=== PATIENT | male | born 1980 | race Two or more races ===

== ENCOUNTER 2024-03-31 16:29 | Emergency (ER) | payer MEDICAID, OTHER ==
[~2024-03-31] VITALS: Ht 177.8 cm; Wt 110.7 kg
[2024-03-31 17:20] LABS: Urine Bacteria None Seen /hpf (None Seen)
[2024-03-31 18:06] LABS: Basophils # (auto) 0 10 ^3/uL (0-0.2); Basophils % (auto) 0.4 % (0.0-2.0); Eosinophils # (auto) 0.2 10 ^3/uL (0-0.8); Eosinophils % (auto) 4.2 % (0.0-7.0); Hematocrit 45.6 % (41.0-53.0); Hemoglobin 15.2 g/dL (13.5-17.5); Lymphocytes # (auto) 1.7 10 ^3/uL (0.4-5.4); Lymphocytes % (auto) 31.6 % (10.0-50.0); Mean Corpuscular Hemoglobin 27.5 pg (28.0-32.0); Mean Corpuscular Hgb Conc. 33.4 g/dL (32.0-36.0); Mean Corpuscular Volume 82.5 fL (80.0-100.0); Monocytes # (auto) 0.5 10 ^3/uL (0-1.3); Monocytes % (auto) 10.2 % (0.0-12.0); Neutrophils # (auto) 2.9 10 ^3/uL (1.6-8.6); Neutrophils % (auto) 53.6 % (37.0-80.0); Nucleated Red Blood Cells % 0.1 %; Platelet Count (auto) 217 10^3/uL (140-450); Red Blood Cells 5.52 10^6/uL (4.5-5.90); Red Cell Distribution Width 13.4 % (11.8-14.3); White Blood Cell 5.3 10^3/uL (4.4-10.8)
[2024-03-31 18:11] LABS: Urine Blood Negative /uL (Negative); Urine Clarity Clear (Clear); Urine Color Light-Yellow (Yellow); Urine Mucus FEW (None Seen); Urine Protein, UAD Negative (Negative); Urine Specific Gravity 1.017 (1.001-1.035); Urine Urobilinogen Normal (Negative); Urine WBC 1 /hpf (0 - 3); Urine pH 7.5 (5.0-9.0)
[2024-03-31] MEDS ORDERED: TRAM50TA2 PO (18:31)
[2024-03-31 18:37] LABS: Chloride 107 mmol/L (98-107); Sodium 140 mmol/L (136-145)
[2024-03-31 18:38] LABS: Anion Gap 6 (5-15); Calcium 9.4 mg/dL (8.7-10.4); Carbon Dioxide 27 mmol/L (20-31)
[2024-03-31 18:43] LABS: BUN/Creatinine Ratio 11.1 (10.0-20.0); Blood Urea Nitrogen 10 mg/dL (9-23); Glucose 92 mg/dL (74-106)
[2024-03-31] MEDS: KETOROLAC TROMETH 30 MG/ML 1ML VIAL IV ONE (18:50)
[2024-03-31] MEDS: SODIUM CHLORIDE 0.9% 1,000 ML IVB ONE (18:57)
[2024-03-31 19:00] VITALS: BP 159/91; TEMP 98.3
[2024-03-31 19:45] VITALS: PULSE 68; RESP 16; O2SAT 98
== END 2024-03-31 19:55 | disposition home or self-care (01) ==
LOC: ER 16:29
DX: M79.18 Myalgia, other site (principal); Z87.442 Personal history of urinary calculi
CPT/HCPCS: 36415; 74176; 80048; 81001; 85025; 96361; 96374; 99285; J1885; J7030

== ENCOUNTER 2024-07-09 06:22 | Inpatient (IN) | payer MEDICAID ==
[~2024-07-09] VITALS: Ht 25.4 cm; Wt 108.9 kg
[~2024-07-09 06:22] MED LIST: ROSU20TA14 PO; TELM1TAB33 PO
[2024-07-09] MEDS ORDERED: IOHEXOL 300 MG/ML 100ML BOTTLE IJ ONE (07:12)
[2024-07-09] MEDS ORDERED: MIDAZOLAM HCL 2MG/2ML 2ml VIAL (1mg/ml) ONE (07:14)
[2024-07-09] MEDS ORDERED: fentaNYL CITRATE 100 MCG/2 ML VL ONE (07:14)
[2024-07-09] MEDS ORDERED: PROPOFOL 10 MG/ML 20 ML IV ONE (07:14)
[2024-07-09] MEDS ORDERED: ONDANSETRON HCL 4 MG/2 ML VIAL ONE (07:15)
[2024-07-09] MEDS ORDERED: HYDROmorphone HCL 2 MG/ML VL/or syr IV PRN (07:15)
[2024-07-09] MEDS ORDERED: CIPROFLOXACIN 400MG/200ML 200 ML IV ONE (07:15)
[2024-07-09] MEDS ORDERED: LIDOCAINE 2% (LOCAL ANESTH.) PF 5ml SDV ONE (07:15)
[2024-07-09] MEDS ORDERED: ONDANSETRON HCL 4 MG/2 ML VIAL IV ONE (07:15)
[2024-07-09] MEDS ORDERED: METOCLOPRAMIDE HCL 5MG/ml INJ 2ml VIAL ONE (07:15)
[2024-07-09] MEDS ORDERED: ROCURONIUM 10MG/ML 10ML VIAL IV ONE (07:58)
[2024-07-09] MEDS ORDERED: SUGAMMADEX 200mg/2ml Vial (100MG/ML) IV ONE (08:13)
[2024-07-09 08:49] VITALS: PULSE 79; RESP 18; TEMP 97.4
--- NOTE | 2024-07-09 08:55 | POSTOP ---
Post-Operative Note Post-Operative Note Preop Diagnosis Left renal calculus, 2 cm lower pole stone Postop Diagnosis: Same Operation performed Left ureteroscopic laser lithotripsy of renal calculus with the evacuation (CVAC) Specimen Renal stones Anesthesia: General Anesthesiologist: Yon clark, REPRODUCER Surgeon Traci German Complications & Mgmt The stone was only partially fragmented and removed due to hard at density of the stone and the difficult position for access in the lower pole. A stent was placed and he will need to undergo outpatient lithotripsy with extracorporeal shockwave therapy Date 07/09/24 Time 08:53 TRACI GERMAN MD Jul 09, 2024 08:55
--- NOTE | 2024-07-09 08:56 | DVHDS2 ---
New Physician D'charge PN Admitting Diagnosis Admitting Diagnosis Left renal calculus, 2 cm lower pole stone Discharge Diagnosis Same Operations or Procedures Left ureteroscopic laser lithotripsy of renal calculus with the evacuation (CVAC) Reason(s) For Hospitalization Surgery Treatment Plan Discharge Complications The stone was only partially fragmented and removed due to hard at density of the stone and the difficult position for access in the lower pole. A stent was placed and he will need to undergo outpatient lithotripsy with extracorporeal shockwave therapy Condition of Discharge Good Disposition Home Discharge Instructions Diet: Regular Activity: Light activity Activity comment: As tolerated Medications: Given Follow Up Care Follow Up/Referral: Outpatient extracorporeal shockwave lithotripsy to be arranged Discharge Statement: "Patient was advised to return to the ER or call 911 if any headaches, dizziness, shortness of breath, chest pain, abdominal pain, bleeding, fevers, or worsening of medical condition. Patient was counseled about treatment plan, medications, possible side effects, patientverbalized understanding. All questions were answered to the best of my ability. This discharge took greater then 30 minutes in planning, reviewing documentation, counseling the patient, and discussing with other team members." TRACI GERMAN MD Jul 09, 2024 08:56
[2024-07-09 09:00] VITALS: PULSE 66; RESP 15
[2024-07-09] MEDS ORDERED: MORPHINE SULFATE INJ 2 MG/ml SYRG IV PRN (09:00)
[2024-07-09] MEDS ORDERED: NITROGLYCERIN 0.4 MG SL TAB SL PRN (09:00)
[2024-07-09 09:30] VITALS: PULSE 60; RESP 17
[2024-07-09] MEDS: HYDROmorphone HCL 2 MG/ML VL/or syr IV ONE (09:30)
--- NOTE | 2024-07-09 09:40 | DVH ---
C-ARM FLUOROSCOPY: PROCEDURE: Left lithotripsy and stent FLUOROSCOPY TIME: 46.2 seconds DAP: 18.06 mgy FINDINGS: Spot intraoperative C arm radiographs demonstrating left lithotripsy and stent placement. IMPRESSION: Please refer to surgical report for detailed findings.
[2024-07-09 10:00] VITALS: PULSE 61; RESP 12
[2024-07-09] MEDS ORDERED: HYDROmorphone HCL 2 MG/ML VL/or syr ONE (10:13)
[2024-07-09] MEDS ORDERED: ACETAMINOPHEN IV 1000 MG/100ML (10MG/ML) IV ONE (10:15)
[2024-07-09] MEDS ORDERED: ACETAMINOPHEN IV 100 ML IV ONE (10:21)
[2024-07-09 10:30] VITALS: PULSE 63; RESP 13
--- NOTE | 2024-07-09 10:42 | DVH ---
Exam: XY KUB ABDOMEN SINGLE VIEW Indication: stent placement Comparison: XY KUB ABDOMEN SINGLE VIEW on DOS: 07/09/24 Technique: 1 radiographic views of the abdomen. Findings: Satisfactory position of left internal ureteral stent. Nonobstructive bowel gas pattern noted. There is no definite evidence for pneumoperitoneum. Few coarse calcifications are present in the region of the left lower pole renal shadow measuring up to 0.9 cm possibly representing nonobstructing stones. Impression: Satisfactory position of left internal ureteral stent. Nonobstructive bowel gas pattern noted.
[2024-07-09 10:54] VITALS: BP 122/59; PULSE 60; RESP 11; O2SAT 95
== END 2024-07-09 11:30 | disposition home or self-care (01) | DRG 465 ==
LOC: SUR 06:22 → OVERFLOW 08:55
PROVIDERS: ADMIT Internal Medicine; ATTEND Internal Medicine
PROC: 0TF78ZZ Fragmentation in Left Ureter, Via Natural or Artificial Opening Endoscopic (ICD-10-PCS; 2024-07-09)
PROC: 0T778DZ Dilation of Left Ureter with Intraluminal Device, Via Natural or Artificial Opening Endoscopic (ICD-10-PCS; principal; 2024-07-09 07:33)
DX: N20.0 Calculus of kidney (principal)
CPT/HCPCS: 74018; 76000; 82360; G0378; J0131; J2003; J2250; J2405; J2704